=== PATIENT | male | born 1945 | race Caucasian/White ===

== ENCOUNTER → 2017-02-17 | Outpatient (CLI) | payer OTHER ==
[~2017-02-17] MED LIST: OMNIPAQUE 350 MG/ML, 100ML BOTTLE ONE
== END | disposition home or self-care (01) ==
LOC: CFH 15:55
DX: I71.4 Abdominal aortic aneurysm, without rupture (principal)
CPT/HCPCS: 74174; Q9967

== ENCOUNTER → 2017-05-24 | Outpatient (CLI) | payer OTHER ==
[~2017-05-24] MED LIST changes: -OMNIPAQUE 350 MG/ML, 100ML BOTTLE ONE; +REGADENOSON 0.4 MG/5 ML SYRINGE ONE
== END | disposition home or self-care (01) ==
LOC: CFH 07:59
PROVIDERS: ATTEND Internal Medicine Cardiovascular Disease
DX: I65.21 Occlusion and stenosis of right carotid artery (principal); I25.119 Atherosclerotic heart disease of native coronary artery with unspecified angina pectoris; I10 Essential (primary) hypertension; I51.7 Cardiomegaly; F17.210 Nicotine dependence, cigarettes, uncomplicated
CPT/HCPCS: 78452; 93017; 93880; A9502; J2785

== ENCOUNTER → 2017-11-16 | Outpatient (CLI) | payer OTHER | END | disposition home or self-care (01) | LOC: CFH 12:39 | DX: I71.4 Abdominal aortic aneurysm, without rupture (principal); K57.30 Diverticulosis of large intestine without perforation or abscess without bleeding; N28.1 Cyst of kidney, acquired | CPT/HCPCS: 74176 ==

== ENCOUNTER → 2018-10-10 | Outpatient (CLI) | payer MEDICARE ==
[~2018-10-10] MED LIST changes: +OMNIPAQUE 350 MG/ML, 100ML BOTTLE ONE; -REGADENOSON 0.4 MG/5 ML SYRINGE ONE
== END | disposition home or self-care (01) ==
LOC: CFH 13:12
DX: I71.4 Abdominal aortic aneurysm, without rupture (principal); K57.30 Diverticulosis of large intestine without perforation or abscess without bleeding; I21.A9 Other myocardial infarction type; N28.1 Cyst of kidney, acquired
CPT/HCPCS: 74174; Q9967

== ENCOUNTER → 2019-04-03 | Outpatient (CLI) | payer MEDICARE | END | disposition home or self-care (01) | LOC: CFH 09:25 | PROVIDERS: ATTEND Internal Medicine Cardiovascular Disease | DX: J43.9 Emphysema, unspecified (principal); I10 Essential (primary) hypertension; I25.10 Atherosclerotic heart disease of native coronary artery without angina pectoris; I71.4 Abdominal aortic aneurysm, without rupture; E78.5 Hyperlipidemia, unspecified | CPT/HCPCS: 71046 ==

== ENCOUNTER → 2020-05-07 | Outpatient (CLI) | payer MEDICARE | END | disposition home or self-care (01) | LOC: CFH 12:20 | PROVIDERS: ATTEND Surgery Vascular Surgery | DX: K57.30 Diverticulosis of large intestine without perforation or abscess without bleeding (principal); N28.1 Cyst of kidney, acquired; I71.4 Abdominal aortic aneurysm, without rupture; M47.816 Spondylosis without myelopathy or radiculopathy, lumbar region | CPT/HCPCS: 74174; Q9967 ==

== ENCOUNTER → 2020-06-13 | Outpatient (CLI) | payer MEDICARE ==
[~2020-06-13] MED LIST changes: +ATOR-2 PO; +HEPARIN 1,000 UNITS/ML, 10ML ONE; +HYDR-3240 PO; +OMEP20TA62 PO; -OMNIPAQUE 350 MG/ML, 100ML BOTTLE ONE; +PROTAMINE SULFATE 10 MG/ML, 5ML ONE; +THROMBIN 5,000 UNIT VIAL TP ONE; +VALS160T3 PO; +VERA360C2 PO
[2020-06-13 10:26] LABS: BASOPHILS # (AUTO) 0.06 x10^3/uL (0-0.1); BASOPHILS % (AUTO) 1 % (0-1); EOSINOPHILS # (AUTO) 0.41 x10^3/uL (0-0.4); EOSINOPHILS % (AUTO) 5 % (1-7); LYMPHOCYTES # (AUTO) 2.22 x10^3/uL (1-3.4); LYMPHOCYTES % (AUTO) 26 % (22-44); MD NO; MEAN CORPUSCULAR HEMOGLOBIN 32.1 pg (27.5-34.5); MEAN CORPUSCULAR HGB CONC 32.8 g/dL (33.2-36.2); MEAN PLATELET VOLUME 8.8 fL (7.4-10.4); MONOCYTES % (AUTO) 10 % (2-9); NEUTROPHILS # (AUTO) 5.13 x10^3/uL (1.8-6.8); NEUTROPHILS % (AUTO) 59 % (42-75); PLATELET COUNT 212 x10^3/uL (130-400); RED BLOOD COUNT 4.87 x10^6/uL (4.38-5.82)
[2020-06-13 10:36] LABS: ALBUMIN 3.7 g/dL (3.4-5.0); ANION GAP 3 mmol/L (5-15); CALCIUM 8.8 mg/dL (8.5-10.1); CHLORIDE 111 mmol/L (98-107)
[2020-06-13 10:40] LABS: ALANINE AMINOTRANSFERASE 33 U/L (12-78); ALKALINE PHOSPHATASE 87 U/L (45-117); BILIRUBIN,TOTAL 0.6 mg/dL (0.2-1.0)
== END | disposition home or self-care (01) ==
LOC: STAR 09:02
PROVIDERS: ATTEND Surgery Vascular Surgery
DX: Z01.818 Encounter for other preprocedural examination (principal); Z20.828 Contact with and (suspected) exposure to other viral communicable diseases; I71.4 Abdominal aortic aneurysm, without rupture
CPT/HCPCS: 36415; 80053; 85025; 87635; 93005

== ENCOUNTER 2020-06-17 05:53 | Inpatient (IN) | payer MEDICARE ==
[~2020-06-17] VITALS: Ht 182.9 cm; Wt 76.6 kg
[~2020-06-17 05:53] MED LIST changes: -HEPARIN 1,000 UNITS/ML, 10ML ONE; -HYDR-3240 PO; -PROTAMINE SULFATE 10 MG/ML, 5ML ONE; -THROMBIN 5,000 UNIT VIAL TP ONE
[2020-06-17] MEDS ORDERED: CHLORHEXIDINE 15 ML UDC MM STA (06:19)
[2020-06-17] MEDS ORDERED: LACTATED RINGERS 1,000 ML IV ONE (06:19)
[2020-06-17] MEDS ORDERED: FENTANYL PF 250 MCG/5ML ONE (07:09)
[2020-06-17] MEDS ORDERED: LIDOCAINE-MPF 2% ,5ML ONE (07:12)
[2020-06-17] MEDS ORDERED: SODIUM CHLORIDE 0.9% PF 10ML ONE (07:12)
[2020-06-17] MEDS ORDERED: PROPOFOL 10 MG/ML, 20ML ONE (07:13)
[2020-06-17] MEDS ORDERED: SUCCINYLCHOLINE 20 MG/ML, 10ML ONE (07:13)
[2020-06-17] MEDS ORDERED: CEFAZOLIN 1,000 MG ONE (07:13)
[2020-06-17] MEDS ORDERED: DEXAMETHASONE 4 MG/ML, 1ML ONE (07:13)
[2020-06-17] MEDS ORDERED: ONDANSETRON 2MG/ML, 2ML ONE (07:13)
[2020-06-17] MEDS ORDERED: HEPARIN 1,000 UNITS/ML, 30ML ONE (07:18)
[2020-06-17] MEDS ORDERED: HEPARIN 1,000 UNITS/ML, 10ML ONE ×2 (07:18)
[2020-06-17] MEDS ORDERED: ONDANSETRON 2MG/ML, 2ML IVPush PRN (07:30)
[2020-06-17] MEDS ORDERED: HYDROmorphone 1 MG/ML, 1ML INJ IVPush PRN (07:30)
[2020-06-17] MEDS ORDERED: EPHEDRINE 50 MG/ML, 1ML IVPush PRN (07:30)
[2020-06-17] MEDS ORDERED: hydrALAzine 20 MG/ML, 1ML IV PRN (07:30)
[2020-06-17] MEDS ORDERED: PROMETHAZINE 25 MG/ML, 1ML IVPush PRN (07:30)
[2020-06-17] MEDS ORDERED: ACETAMINOPHEN 325 MG TABLET PO PRN (07:30)
[2020-06-17] MEDS ORDERED: LABETALOL 5MG/ML, 20ML IV PRN (07:30)
[2020-06-17] MEDS ORDERED: MEPERIDINE/PF 25MG/0.5ML IVPush PRN (07:30)
[2020-06-17] MEDS ORDERED: GLYCOPYRROLATE 0.2MG/1ML, 5ML ONE (07:35)
[2020-06-17] MEDS ORDERED: PHENYLEPHRINE 10 MG/ML ONE (07:58)
[2020-06-17] MEDS ORDERED: ROCURONIUM 10 MG/ML,10ML ONE (08:07)
[2020-06-17] MEDS ORDERED: SUGAMMADEX 200 MG/2 ML IVPush ONE (08:09)
[2020-06-17] MEDS: FENTANYL PF 100 MCG/2ML IV PRN ×4 (09:24→10:05)
[2020-06-17] MEDS ORDERED: FENTANYL PF 100 MCG/2ML ONE (09:31)
[2020-06-17] MEDS ORDERED: OXYcodone 5 MG/5 ML ORAL.SOL UDC ONE (09:32)
[2020-06-17] MEDS: OXYcodone 5 MG/5 ML ORAL.SOL UDC PO PRN ×2 (09:34→09:58)
[2020-06-17] MEDS ORDERED: HYDROmorphone 1 MG/ML, 1ML INJ ONE (10:02)
[2020-06-17] MEDS ORDERED: ONDANSETRON 2MG/ML, 2ML IV PRN (11:00)
[2020-06-17] MEDS ORDERED: morphine SULFATE 10 MG/ML, 1ML IV PRN (11:00)
[2020-06-17] MEDS: POTASSIUM CHLORIDE 20 MEQ in D5%-0.45% NACL 1,000 ML IV SCH (12:28)
[2020-06-17 13:25] VITALS: BP 148/84
[2020-06-17] MEDS: HYDROcodone/APAP 5/325 TABLET PO PRN ×3 (13:47→23:45)
[2020-06-17 19:02] VITALS: BP 143/93
[2020-06-17] MEDS ORDERED: ATORVASTATIN 80 MG TABLET PO SCH (21:00)
[2020-06-17 23:36] VITALS: BP 150/71
[2020-06-18] MEDS: POTASSIUM CHLORIDE 20 MEQ in D5%-0.45% NACL 1,000 ML IV SCH (01:28)
[2020-06-18 03:42] VITALS: BP 125/65
[2020-06-18] MEDS ORDERED: OMEPRAZOLE 20 MG CAPSULE.DR PO SCH (06:00)
[2020-06-18 06:05] LABS: BASOPHILS % (AUTO) 0 % (0-1); EOSINOPHILS % (AUTO) 0 % (1-7); LYMPHOCYTES % (AUTO) 6 % (22-44); MEAN CORPUSCULAR HEMOGLOBIN 31.6 pg (27.5-34.5); MEAN PLATELET VOLUME 8.9 fL (7.4-10.4); MONOCYTES % (AUTO) 6 % (2-9); NEUTROPHILS % (AUTO) 88 % (42-75); PLATELET COUNT 209 x10^3/uL (130-400)
[2020-06-18 06:08] LABS: ANION GAP 4 mmol/L (5-15); CALCIUM 8.7 mg/dL (8.5-10.1); CHLORIDE 107 mmol/L (98-107); CREATININE 0.93 mg/dL (0.7-1.3)
[2020-06-18 06:28] LABS: MD NO
[2020-06-18 07:22] VITALS: BP 145/73
[2020-06-18] MEDS: HYDROcodone/APAP 5/325 TABLET PO PRN (08:08)
[2020-06-18] MEDS ORDERED: VALSARTAN 160 MG TABLET PO SCH (09:00)
[2020-06-18] MEDS ORDERED: VERAPAMIL ER 180MG TABLET.ER PO SCH (09:00)
[2020-06-18] MEDS ORDERED: HYDR-3240 PO (10:16)
== END 2020-06-18 11:00 | disposition home or self-care (01) | DRG 269 ==
LOC: ORIP 05:53 → EDSTATUS 07:30 → 4NE 10:28 → DCLOUNGE 06-18 10:55
PROVIDERS: ADMIT Surgery Vascular Surgery; ATTEND Surgery Vascular Surgery
PROC: B4101ZZ Fluoroscopy of Abdominal Aorta using Low Osmolar Contrast (ICD-10-PCS; 2020-06-17)
PROC: 04V03EZ Restriction of Abdominal Aorta with Branched or Fenestrated Intraluminal Device, One or Two Arteries, Percutaneous Approach (ICD-10-PCS; principal; 2020-06-17 07:30)
DX: I71.4 Abdominal aortic aneurysm, without rupture (principal)
CPT/HCPCS: 34705; 34812; 36415; 80048; 85025; 85347; 86850; 86900; C1725; G0378; J0690; J1100; J1170; J1644; J2405; J2704; J3010; J3480; C1751; C1768; C1769; C1894; J0330; J2370; J7120

== ENCOUNTER → 2020-07-19 | Outpatient (CLI) | payer MEDICARE ==
[~2020-07-19] MED LIST changes: +HYDR-3240 PO; +OMNIPAQUE 350 MG/ML, 100ML BOTTLE ONE
== END | disposition home or self-care (01) ==
LOC: CFH 08:00
PROVIDERS: ATTEND Surgery Vascular Surgery
DX: K57.30 Diverticulosis of large intestine without perforation or abscess without bleeding (principal); I71.4 Abdominal aortic aneurysm, without rupture; N28.1 Cyst of kidney, acquired; L76.34 Postprocedural seroma of skin and subcutaneous tissue following other procedure; Q63.2 Ectopic kidney
CPT/HCPCS: 74174; Q9967